=== PATIENT | female | born 1945 | race Caucasian/White ===

== ENCOUNTER 2020-01-01 18:28 | Inpatient (IN) ==
[2020-01-01] MEDS ORDERED: SODIUM CHLORIDE 0.9% 1,000 ML IV STA (19:07)
[2020-01-01 19:18] LABS: Basophils % 0.6 % (0.0-0.8); Eosinophils # 0.1 10*3/uL (0.0-0.87); Eosinophils % 1.9 % (0.00-10.9); Hematocrit 37.7 VOL% (35.7-47.0); Hemoglobin 11.7 GM/DL (12.0-16.0); Immature Granulocytes % 0.7 %; Immature Granulocytes Absolute 0.05 #; Lymphocytes # 1.1 10*3/uL (1.4-4.0); Mean Platelet Volume 11.6 FL (9.6-12.0); Monocytes % 9.5 % (1.7-12.7); Neutrophils % 72.3 % (38.7-73.9); Platelet Count 258 T/CUMM (130-400); Red Blood Count 3.81 MC/CUMM (3.8-5.5); Red Cell Distribution Width 15.1 % (9.3-17.3); White Blood Count 7.2 T/CUMM (4-12)
[2020-01-01 19:25] LABS: INR 1.1; PT Patient Result 12.1 SECS (9.8-11.9)
[2020-01-01 19:33] LABS: Alanine Aminotransferase < 6 U/L (13-56); Albumin 2.6 G/DL (3.4-5.0); Alkaline Phosphatase 68 U/L (45-117); Aspartate Amino Transferase 18 U/L (0-37); Blood Urea Nitrogen 13 MG/DL (7-18); Calcium 8.7 MG/DL (8.5-10.1); Estimated Glom Filtration Rate 93 ML/MIN; Glucose 81 MG/DL (74-106); Total Protein 5.7 G/DL (6.4-8.3)
[2020-01-01 20:24] LABS: Apearance,Urine CLOUDY (Clear); Bacteria,Urine Many /HPF (Few); Bilirubin,Urine Negative (Negative); Blood, Urine Small mg/dL (Negative); Glucose,Urine (UA) Negative (Negative); Ketones,Urine 80 mg/dL (Negative); Mucus,Urine Few /LPF (Occasional); Nitrite,Urine Negative (Negative); Protein,Urine >=500 MG/DL; RBC,Urine 85 /HPF (0-4); Squamous Epithelial Cell,Urine Occasional /HPF (0-10); Urine Color Amber (Yellow); Urine Specific Gravity 1.027 (1.001-1.035); Urine Urobilinogen < 2.0 EU/DL (0.2-1.0); WBC,Urine 534 /HPF (0-6)
[2020-01-01] MEDS ORDERED: PIPERACILLIN/TAZOBACTAM 3,375 MG in SODIUM CHLORIDE 0.9% 100 ML IV STA (20:39)
[2020-01-01] MEDS ORDERED: hydrALAZINE 20 MG/1 ML VIAL IV STA ×2 (20:41→22:33)
[2020-01-01] MEDS ORDERED: PROMETHAZINE 25 MG/1 ML VIAL IM PRN (23:10)
[2020-01-01] MEDS ORDERED: GLUCAGON 1 MG VIAL IM PRN (23:10)
[2020-01-01] MEDS ORDERED: ONDANSETRON 4 MG/2 ML VIAL IV PRN (23:10)
[2020-01-01] MEDS ORDERED: NICOTINE 21 MG/24 HR PATCH TRANSDERM PRN (23:10)
[2020-01-01] MEDS ORDERED: DEXTROSE 50% 25 GM/50 ML VIAL IV PRN (23:10)
[2020-01-01] MEDS ORDERED: diphenhydrAMINE CAP 25 MG CAPSULE PO PRN (23:10)
[2020-01-01] MEDS ORDERED: guaiFENesin/DM ER 600-30 MG TABLET PO PRN (23:10)
[2020-01-02] MEDS ORDERED: LORazepam 2 MG/1 ML VIAL ONE (00:17)
[2020-01-02] MEDS ORDERED: LORazepam 2 MG/1 ML VIAL IV ONE (00:20)
[2020-01-02] MEDS: MEROPENEM 500 MG in SODIUM CHLORIDE 0.9% 100 ML IV SCH ×4 (02:59→21:07)
[2020-01-02] MEDS: hydrALAZINE 20 MG/1 ML VIAL IV PRN ×2 (03:36→21:04)
[2020-01-02 04:27] LABS: Basophils # 0.1 10*3/uL (0.0-0.2); Basophils % 0.5 % (0.0-0.8); Eosinophils # 0.1 10*3/uL (0.0-0.87); Eosinophils % 0.7 % (0.00-10.9); Hematocrit 40.6 VOL% (35.7-47.0); Hemoglobin 12.6 GM/DL (12.0-16.0); Immature Granulocytes % 0.4 %; Immature Granulocytes Absolute 0.04 #; Lymphocytes # 0.9 10*3/uL (1.4-4.0); Lymphocytes % 8.9 % (21.3-54.2); Mean Corpuscular Volume 100.2 FL (87-102); Mean Platelet Volume 11.7 FL (9.6-12.0); Monocytes % 9.3 % (1.7-12.7); Neutrophils % 80.2 % (38.7-73.9); Platelet Count 221 T/CUMM (130-400); Red Blood Count 4.05 MC/CUMM (3.8-5.5); Red Cell Distribution Width 15.3 % (9.3-17.3)
[2020-01-02 05:08] LABS: Calcium 8.9 MG/DL (8.5-10.1); Osmolality,Calculated 282.1 MOS/KG (273-304)
[2020-01-02] MEDS ORDERED: MAGNESIUM SULF RIDER 4 GM in PREMIX 1 EACH IV PRN (05:58)
[2020-01-02] MEDS ORDERED: MAGNESIUM SULF RIDER 2 GM in PREMIX 1 EACH IV PRN (05:58)
[2020-01-02] MEDS ORDERED: MAGNESIUM SULF RIDER 0 ML IV ONE (06:00)
[2020-01-02] MEDS ORDERED: MAGNESIUM SULF RIDER 4 GM in PREMIX 1 EACH IV ONE (09:30)
[2020-01-02] MEDS: FUROSEMIDE 40 MG/4 ML VIAL IV SCH ×2 (10:24→16:36)
[2020-01-02] MEDS: PANTOPRAZOLE 40 MG TABLET PO SCH (10:24)
[2020-01-02] MEDS: DOCUSATE SODIUM 100 MG CAPSULE PO SCH ×2 (10:24→20:49)
[2020-01-02] MEDS: ENOXAPARIN 40 MG/0.4 ML SYRINGE SUBCUT SCH (10:25)
[2020-01-02] MEDS ORDERED: METOPROLOL TARTRATE 5 MG/5 ML VIAL IV ONE (10:42)
[2020-01-02] MEDS ORDERED: DIGOXIN 0.5 MG/2 ML AMP IV ONE (10:43)
[2020-01-02] MEDS ORDERED: GENTAMICIN INJ 400 MG in SODIUM CHLORIDE 0.9% 100 ML IV SCH (11:00)
[2020-01-02] MEDS ORDERED: AMIODARONE INJ 150 MG in DEXTROSE 5% 100 ML IV ONE (11:03)
[2020-01-02] MEDS ORDERED: MAGNESIUM SULF RIDER 2 GM in PREMIX 1 EACH IV ONE (11:07)
[2020-01-02] MEDS ORDERED: DIGOXIN 0.5 MG/2 ML AMP IV SCH (11:30)
[2020-01-02] MEDS: LORazepam 2 MG/1 ML VIAL IV PRN ×2 (12:27→17:01)
[2020-01-02] MEDS: dilTIAZem Drip 125 MG/125 ML PREMIX IV SCH (13:40)
[2020-01-02] MEDS: POTASSIUM CHLORIDE 20 MEQ TABLET PO SCH (14:15)
[2020-01-02] MEDS: POTASSIUM CHLORIDE RIDER 10 MEQ in PREMIX 1 EACH IV SCH ×8 (14:33→23:55)
[2020-01-02] MEDS: METOPROLOL TARTRATE 5 MG/5 ML VIAL IV SCH (23:56)
[2020-01-03] MEDS: dilTIAZem Drip 125 MG/125 ML PREMIX IV SCH ×2 (00:07→16:18)
[2020-01-03] MEDS: MEROPENEM 500 MG in SODIUM CHLORIDE 0.9% 100 ML IV SCH ×4 (02:25→20:40)
[2020-01-03 04:53] LABS: Basophils # 0.1 10*3/uL (0.0-0.2); Basophils % 0.5 % (0.0-0.8); Eosinophils # 0.1 10*3/uL (0.0-0.87); Hematocrit 34.1 VOL% (35.7-47.0); Hemoglobin 10.9 GM/DL (12.0-16.0); Immature Granulocytes % 0.5 %; Immature Granulocytes Absolute 0.05 #; Lymphocytes # 0.7 10*3/uL (1.4-4.0); Lymphocytes % 7.7 % (21.3-54.2); Mean Corpuscular Volume 96.6 FL (87-102); Mean Platelet Volume 12.1 FL (9.6-12.0); Monocytes % 11.3 % (1.7-12.7); Platelet Count 238 T/CUMM (130-400); Red Blood Count 3.53 MC/CUMM (3.8-5.5); Red Cell Distribution Width 15.7 % (9.3-17.3); White Blood Count 9.2 T/CUMM (4-12)
[2020-01-03 05:31] LABS: Calcium 8.6 MG/DL (8.5-10.1); Osmolality,Calculated 281.3 MOS/KG (273-304)
[2020-01-03] MEDS: hydrALAZINE 20 MG/1 ML VIAL IV PRN ×3 (05:58→23:10)
[2020-01-03] MEDS: METOPROLOL TARTRATE 5 MG/5 ML VIAL IV SCH ×4 (06:02→23:35)
[2020-01-03] MEDS: ENOXAPARIN 40 MG/0.4 ML SYRINGE SUBCUT SCH (08:37)
[2020-01-03] MEDS ORDERED: FUROSEMIDE 20 MG/2 ML VIAL ONE (10:03)
[2020-01-03] MEDS: FUROSEMIDE 40 MG/4 ML VIAL IV SCH ×2 (10:05→15:36)
[2020-01-03] MEDS: DOCUSATE SODIUM 100 MG CAPSULE PO SCH (10:10)
[2020-01-03] MEDS: AMPICILLIN INJ 1,000 MG in SODIUM CHLORIDE 0.9% 100 ML IV SCH ×3 (10:10→20:40)
[2020-01-03] MEDS: PANTOPRAZOLE 40 MG TABLET PO SCH (10:10)
[2020-01-03] MEDS: PANTOPRAZOLE 40 MG VIAL IV SCH (13:35)
[2020-01-03] MEDS: LORazepam 2 MG/1 ML VIAL IV PRN ×2 (20:40→22:32)
[2020-01-04] MEDS: MEROPENEM 500 MG in SODIUM CHLORIDE 0.9% 100 ML IV SCH ×3 (02:40→14:00)
[2020-01-04] MEDS: AMPICILLIN INJ 1,000 MG in SODIUM CHLORIDE 0.9% 100 ML IV SCH ×4 (02:43→20:11)
[2020-01-04 04:28] LABS: Basophils # 0.1 10*3/uL (0.0-0.2); Basophils % 0.6 % (0.0-0.8); Eosinophils # 0.1 10*3/uL (0.0-0.87); Eosinophils % 1.8 % (0.00-10.9); Hematocrit 34.1 VOL% (35.7-47.0); Hemoglobin 10.7 GM/DL (12.0-16.0); Immature Granulocytes % 0.6 %; Immature Granulocytes Absolute 0.05 #; Lymphocytes % 12.5 % (21.3-54.2); Mean Corpuscular HGB Conc 31.4 GM/DL (32-36); Mean Corpuscular Volume 99.1 FL (87-102); Mean Platelet Volume 11.8 FL (9.6-12.0); Monocytes % 12.5 % (1.7-12.7); Platelet Count 200 T/CUMM (130-400); Red Blood Count 3.44 MC/CUMM (3.8-5.5); Red Cell Distribution Width 15.5 % (9.3-17.3); White Blood Count 7.8 T/CUMM (4-12)
[2020-01-04] MEDS: ALBUTEROL 2.5 MG/3 ML NEB RESP TX PRN (04:42)
[2020-01-04 04:46] LABS: Hypochromasia 1+; Platelet Estimate Adequate
[2020-01-04 04:52] LABS: Calcium 8.6 MG/DL (8.5-10.1); Osmolality,Calculated 287.8 MOS/KG (273-304)
[2020-01-04] MEDS: METOPROLOL TARTRATE 5 MG/5 ML VIAL IV SCH (06:00)
[2020-01-04] MEDS ORDERED: DEXTROSE 50% 25 GM/50 ML VIAL IV PRN (08:33)
[2020-01-04] MEDS: ENOXAPARIN 40 MG/0.4 ML SYRINGE SUBCUT SCH (08:41)
[2020-01-04] MEDS: DILTIAZEM 60 MG TABLET PO SCH ×4 (08:41→20:11)
[2020-01-04] MEDS: PANTOPRAZOLE 40 MG VIAL IV SCH (08:41)
[2020-01-04] MEDS: METOPROLOL TARTRATE 25 MG TABLET PO SCH ×2 (08:42→20:11)
[2020-01-04] MEDS: ACETAMINOPHEN 325 MG TABLET PO PRN (15:38)
[2020-01-04] MEDS: FLUCONAZOLE 40 MG/ML 35 ML/BOTTLE PER TUBE SCH (17:27)
[2020-01-04] MEDS: LORazepam 2 MG/1 ML VIAL IV PRN (19:49)
[2020-01-05] MEDS: hydrALAZINE 20 MG/1 ML VIAL IV PRN (01:22)
[2020-01-05] MEDS: AMPICILLIN INJ 1,000 MG in SODIUM CHLORIDE 0.9% 100 ML IV SCH ×2 (03:34→08:36)
[2020-01-05 03:39] LABS: Basophils # 0.1 10*3/uL (0.0-0.2); Basophils % 0.8 % (0.0-0.8); Eosinophils # 0.3 10*3/uL (0.0-0.87); Eosinophils % 4.7 % (0.00-10.9); Hematocrit 34.8 VOL% (35.7-47.0); Hemoglobin 10.4 GM/DL (12.0-16.0); Immature Granulocytes % 0.5 %; Immature Granulocytes Absolute 0.03 #; Lymphocytes # 1.1 10*3/uL (1.4-4.0); Lymphocytes % 16.7 % (21.3-54.2); Mean Corpuscular HGB Conc 29.9 GM/DL (32-36); Mean Corpuscular Volume 101.2 FL (87-102); Mean Platelet Volume 11.6 FL (9.6-12.0); Monocytes % 14.7 % (1.7-12.7); Neutrophils % 62.6 % (38.7-73.9); Platelet Count 195 T/CUMM (130-400); Red Blood Count 3.44 MC/CUMM (3.8-5.5); Red Cell Distribution Width 15.5 % (9.3-17.3); White Blood Count 6.6 T/CUMM (4-12)
[2020-01-05 04:02] LABS: Calcium 9.1 MG/DL (8.5-10.1); Osmolality,Calculated 290.7 MOS/KG (273-304)
[2020-01-05 04:23] LABS: Hypochromasia 1+; Platelet Estimate Adequate
[2020-01-05] MEDS: ENOXAPARIN 40 MG/0.4 ML SYRINGE SUBCUT SCH (08:35)
[2020-01-05] MEDS: DILTIAZEM 60 MG TABLET PO SCH ×4 (08:36→20:28)
[2020-01-05] MEDS: PANTOPRAZOLE 40 MG VIAL IV SCH (08:36)
[2020-01-05] MEDS: METOPROLOL TARTRATE 25 MG TABLET PO SCH ×2 (08:36→20:28)
[2020-01-05] MEDS: FLUCONAZOLE 40 MG/ML 35 ML/BOTTLE PER TUBE SCH (08:37)
[2020-01-05] MEDS: POTASSIUM CHLORIDE RIDER 10 MEQ in PREMIX 1 EACH IV SCH ×4 (10:35→14:03)
[2020-01-05] MEDS ORDERED: POTASSIUM CHLORIDE 20 MEQ/15 ML UDCUP PER TUBE PRN (14:09)
[2020-01-05] MEDS ORDERED: MAGNESIUM SULF RIDER 2 GM in PREMIX 1 EACH IV ONE (14:09)
[2020-01-05] MEDS: ASPIRIN CHEW 81 MG TABLET PO SCH (15:09)
[2020-01-05] MEDS: FERROUS SULFATE 325 MG TABLET PO SCH (20:28)
[2020-01-05] MEDS: ASCORBIC ACID 500 MG TABLET PO SCH (20:28)
[2020-01-05] MEDS: ATORVASTATIN 10 MG TABLET PO SCH (20:28)
[2020-01-05] MEDS: CITALOPRAM 20 MG TABLET PO SCH (20:28)
[2020-01-05] MEDS: cycloSPORINE OPH EMUL 1 VIAL BOTH EYES SCH (22:51)
[2020-01-06 04:09] LABS: Basophils % 0.6 % (0.0-0.8); Eosinophils # 0.3 10*3/uL (0.0-0.87); Hematocrit 33.3 VOL% (35.7-47.0); Hemoglobin 9.9 GM/DL (12.0-16.0); Immature Granulocytes % 0.6 %; Immature Granulocytes Absolute 0.04 #; Lymphocytes % 15.3 % (21.3-54.2); Mean Corpuscular HGB Conc 29.7 GM/DL (32-36); Mean Corpuscular Volume 101.2 FL (87-102); Mean Platelet Volume 12.1 FL (9.6-12.0); Monocytes % 12.6 % (1.7-12.7); Neutrophils % 65.9 % (38.7-73.9); Platelet Count 176 T/CUMM (130-400); Red Blood Count 3.29 MC/CUMM (3.8-5.5); Red Cell Distribution Width 14.9 % (9.3-17.3); White Blood Count 6.7 T/CUMM (4-12)
[2020-01-06 04:38] LABS: Calcium 9.2 MG/DL (8.5-10.1)
[2020-01-06] MEDS: hydrALAZINE 20 MG/1 ML VIAL IV PRN (06:07)
[2020-01-06] MEDS: FERROUS SULFATE 325 MG TABLET PO SCH ×2 (08:17→20:19)
[2020-01-06] MEDS: ASPIRIN CHEW 81 MG TABLET PO SCH (08:17)
[2020-01-06] MEDS: CITALOPRAM 20 MG TABLET PO SCH ×2 (08:17→20:19)
[2020-01-06] MEDS: ASCORBIC ACID 500 MG TABLET PO SCH ×2 (08:17→20:19)
[2020-01-06] MEDS: FOLIC ACID 1 MG TABLET PO SCH (08:17)
[2020-01-06] MEDS: DILTIAZEM 60 MG TABLET PO SCH ×4 (08:18→20:18)
[2020-01-06] MEDS: METOPROLOL TARTRATE 25 MG TABLET PO SCH ×2 (08:18→20:19)
[2020-01-06] MEDS: ENOXAPARIN 40 MG/0.4 ML SYRINGE SUBCUT SCH (08:18)
[2020-01-06] MEDS: PANTOPRAZOLE 40 MG VIAL IV SCH (08:18)
[2020-01-06] MEDS: FLUCONAZOLE 40 MG/ML 35 ML/BOTTLE PER TUBE SCH (08:19)
[2020-01-06] MEDS: DOCUSATE SODIUM 100 MG CAPSULE PO SCH (08:20)
[2020-01-06] MEDS: cycloSPORINE OPH EMUL 1 VIAL BOTH EYES SCH ×2 (08:22→20:19)
[2020-01-06] MEDS: ALBUTEROL 2.5 MG/3 ML NEB RESP TX PRN (09:00)
[2020-01-06] MEDS ORDERED: ASPIRIN EC 81 MG TABLET PO SCH (09:00)
[2020-01-06] MEDS: CRAN VITC MANNOSE FOS BROMELN PO SCH (09:37)
[2020-01-06] MEDS: CEFTAROLINE 600 MG in SODIUM CHLORIDE 0.9% 100 ML IV SCH ×2 (09:40→22:00)
[2020-01-06] MEDS: ALBUTEROL/IPRATROPIUM 3 ML NEB RESP TX SCH ×2 (13:15→19:36)
[2020-01-06] MEDS: ACETAMINOPHEN 325 MG TABLET PO PRN (17:48)
[2020-01-06] MEDS: ATORVASTATIN 10 MG TABLET PO SCH (20:19)
[2020-01-07] MEDS: ALBUTEROL/IPRATROPIUM 3 ML NEB RESP TX SCH ×4 (00:24→19:40)
[2020-01-07] MEDS: ENOXAPARIN 40 MG/0.4 ML SYRINGE SUBCUT SCH (09:52)
[2020-01-07] MEDS: CITALOPRAM 20 MG TABLET PO SCH ×3 (09:52→21:34)
[2020-01-07] MEDS: PANTOPRAZOLE 40 MG VIAL IV SCH (09:52)
[2020-01-07] MEDS: ASCORBIC ACID 500 MG TABLET PO SCH ×3 (09:53→21:34)
[2020-01-07] MEDS: DOCUSATE SODIUM 100 MG CAPSULE PO SCH (09:53)
[2020-01-07] MEDS: ASPIRIN CHEW 81 MG TABLET PO SCH (09:53)
[2020-01-07] MEDS: DILTIAZEM 60 MG TABLET PO SCH ×5 (09:53→21:33)
[2020-01-07] MEDS: FOLIC ACID 1 MG TABLET PO SCH (09:53)
[2020-01-07] MEDS: METOPROLOL TARTRATE 25 MG TABLET PO SCH ×3 (09:53→21:34)
[2020-01-07] MEDS: cycloSPORINE OPH EMUL 1 VIAL BOTH EYES SCH ×2 (09:54→21:30)
[2020-01-07] MEDS: CRAN VITC MANNOSE FOS BROMELN PO SCH (09:54)
[2020-01-07] MEDS: FERROUS SULFATE 325 MG TABLET PO SCH ×3 (09:54→21:34)
[2020-01-07] MEDS: FLUCONAZOLE 40 MG/ML 35 ML/BOTTLE PER TUBE SCH (09:54)
[2020-01-07] MEDS: CEFTAROLINE 600 MG in SODIUM CHLORIDE 0.9% 100 ML IV SCH ×2 (10:51→21:30)
[2020-01-07] MEDS: MORPHINE 4 MG/1 ML VIAL IV PRN (12:26)
[2020-01-07] MEDS: hydrALAZINE 20 MG/1 ML VIAL IV PRN (12:26)
[2020-01-07] MEDS: LORazepam 2 MG/1 ML VIAL IV PRN (16:28)
[2020-01-07] MEDS: ATORVASTATIN 10 MG TABLET PO SCH ×2 (20:22→21:34)
[2020-01-08] MEDS: ALBUTEROL/IPRATROPIUM 3 ML NEB RESP TX SCH ×4 (01:47→19:28)
[2020-01-08 06:15] LABS: Basophils # 0.1 10*3/uL (0.0-0.2); Basophils % 0.7 % (0.0-0.8); Eosinophils # 0.3 10*3/uL (0.0-0.87); Eosinophils % 3.9 % (0.00-10.9); Hematocrit 31.6 VOL% (35.7-47.0); Hemoglobin 9.8 GM/DL (12.0-16.0); Immature Granulocytes Absolute 0.07 #; Lymphocytes # 1.4 10*3/uL (1.4-4.0); Lymphocytes % 18.9 % (21.3-54.2); Mean Corpuscular Volume 96.9 FL (87-102); Mean Platelet Volume 12.9 FL (9.6-12.0); Monocytes % 14.5 % (1.7-12.7); Platelet Count 195 T/CUMM (130-400); Red Blood Count 3.26 MC/CUMM (3.8-5.5); Red Cell Distribution Width 14.9 % (9.3-17.3); White Blood Count 7.4 T/CUMM (4-12)
[2020-01-08 06:48] LABS: Calcium 9.3 MG/DL (8.5-10.1); Osmolality,Calculated 283.3 MOS/KG (273-304)
[2020-01-08] MEDS: CEFTAROLINE 600 MG in SODIUM CHLORIDE 0.9% 100 ML IV SCH ×2 (09:41→20:58)
[2020-01-08] MEDS: FLUCONAZOLE 40 MG/ML 35 ML/BOTTLE PER TUBE SCH (09:49)
[2020-01-08] MEDS: cycloSPORINE OPH EMUL 1 VIAL BOTH EYES SCH ×2 (09:49→21:14)
[2020-01-08] MEDS: ENOXAPARIN 40 MG/0.4 ML SYRINGE SUBCUT SCH (09:49)
[2020-01-08] MEDS: PANTOPRAZOLE 40 MG VIAL IV SCH (09:49)
[2020-01-08] MEDS: DILTIAZEM 60 MG TABLET PO SCH ×4 (09:50→21:11)
[2020-01-08] MEDS: ASCORBIC ACID 500 MG TABLET PO SCH ×2 (09:50→21:11)
[2020-01-08] MEDS: METOPROLOL TARTRATE 25 MG TABLET PO SCH ×2 (09:50→21:11)
[2020-01-08] MEDS: FERROUS SULFATE 325 MG TABLET PO SCH ×2 (09:50→21:14)
[2020-01-08] MEDS: CITALOPRAM 20 MG TABLET PO SCH ×2 (09:50→21:14)
[2020-01-08] MEDS: ASPIRIN CHEW 81 MG TABLET PO SCH (09:50)
[2020-01-08] MEDS: FOLIC ACID 1 MG TABLET PO SCH (09:50)
[2020-01-08] MEDS: DOCUSATE SODIUM 100 MG CAPSULE PO SCH (09:50)
[2020-01-08] MEDS: CRAN VITC MANNOSE FOS BROMELN PO SCH (09:50)
[2020-01-08] MEDS: MORPHINE 4 MG/1 ML VIAL IV PRN (12:33)
[2020-01-08] MEDS: hydrALAZINE 10 MG TABLET PO SCH ×2 (12:37→21:11)
[2020-01-08] MEDS: LORazepam 2 MG/1 ML VIAL IV PRN (13:29)
[2020-01-08] MEDS: ATORVASTATIN 10 MG TABLET PO SCH (21:14)
[2020-01-09] MEDS: ALBUTEROL/IPRATROPIUM 3 ML NEB RESP TX SCH ×4 (00:10→19:12)
[2020-01-09 06:45] LABS: Basophils # 0.1 10*3/uL (0.0-0.2); Basophils % 0.8 % (0.0-0.8); Eosinophils # 0.4 10*3/uL (0.0-0.87); Eosinophils % 5.9 % (0.00-10.9); Hematocrit 28.2 VOL% (35.7-47.0); Hemoglobin 8.8 GM/DL (12.0-16.0); Immature Granulocytes % 0.9 %; Immature Granulocytes Absolute 0.06 #; Lymphocytes # 1.2 10*3/uL (1.4-4.0); Lymphocytes % 18.2 % (21.3-54.2); Mean Corpuscular HGB Conc 31.2 GM/DL (32-36); Mean Corpuscular Volume 98.3 FL (87-102); Mean Platelet Volume 13.6 FL (9.6-12.0); Monocytes % 12.2 % (1.7-12.7); Platelet Count 166 T/CUMM (130-400); Red Blood Count 2.87 MC/CUMM (3.8-5.5); Red Cell Distribution Width 14.8 % (9.3-17.3); White Blood Count 6.7 T/CUMM (4-12)
[2020-01-09 07:01] LABS: Calcium 8.7 MG/DL (8.5-10.1); Osmolality,Calculated 280.5 MOS/KG (273-304)
[2020-01-09 07:13] LABS: Hypochromasia 2+; Microcytosis Slight; Ovalocytes Slight; Platelet Estimate Adequate
[2020-01-09] MEDS: ASCORBIC ACID 500 MG TABLET PO SCH ×2 (09:31→20:31)
[2020-01-09] MEDS: FERROUS SULFATE 325 MG TABLET PO SCH ×2 (09:31→20:31)
[2020-01-09] MEDS: PANTOPRAZOLE 40 MG VIAL IV SCH (09:31)
[2020-01-09] MEDS: FOLIC ACID 1 MG TABLET PO SCH (09:31)
[2020-01-09] MEDS: ASPIRIN CHEW 81 MG TABLET PO SCH (09:31)
[2020-01-09] MEDS: hydrALAZINE 10 MG TABLET PO SCH ×2 (09:31→20:31)
[2020-01-09] MEDS: CRAN VITC MANNOSE FOS BROMELN PO SCH (09:32)
[2020-01-09] MEDS: DOCUSATE SODIUM 100 MG CAPSULE PO SCH (09:32)
[2020-01-09] MEDS: cycloSPORINE OPH EMUL 1 VIAL BOTH EYES SCH ×2 (09:32→20:32)
[2020-01-09] MEDS: DILTIAZEM 60 MG TABLET PO SCH ×4 (09:32→20:31)
[2020-01-09] MEDS: METOPROLOL TARTRATE 25 MG TABLET PO SCH ×2 (09:32→20:30)
[2020-01-09] MEDS: CITALOPRAM 20 MG TABLET PO SCH ×2 (09:32→20:31)
[2020-01-09] MEDS: ENOXAPARIN 40 MG/0.4 ML SYRINGE SUBCUT SCH (09:51)
[2020-01-09] MEDS: CEFTAROLINE 600 MG in SODIUM CHLORIDE 0.9% 100 ML IV SCH ×2 (09:55→21:03)
[2020-01-09] MEDS: MORPHINE 4 MG/1 ML VIAL IV PRN (17:17)
[2020-01-09] MEDS: ATORVASTATIN 10 MG TABLET PO SCH (20:31)
[2020-01-10] MEDS: ALBUTEROL/IPRATROPIUM 3 ML NEB RESP TX SCH ×4 (00:26→19:08)
[2020-01-10 04:23] LABS: Basophils # 0.1 10*3/uL (0.0-0.2); Basophils % 0.7 % (0.0-0.8); Eosinophils # 0.4 10*3/uL (0.0-0.87); Hematocrit 27.7 VOL% (35.7-47.0); Hemoglobin 8.7 GM/DL (12.0-16.0); Immature Granulocytes % 0.8 %; Immature Granulocytes Absolute 0.06 #; Lymphocytes # 1.2 10*3/uL (1.4-4.0); Lymphocytes % 16.3 % (21.3-54.2); Mean Corpuscular HGB Conc 31.4 GM/DL (32-36); Mean Corpuscular Volume 98.2 FL (87-102); Monocytes % 14.6 % (1.7-12.7); Neutrophils % 61.6 % (38.7-73.9); Platelet Count 175 T/CUMM (130-400); Red Blood Count 2.82 MC/CUMM (3.8-5.5); Red Cell Distribution Width 14.5 % (9.3-17.3); White Blood Count 7.3 T/CUMM (4-12)
[2020-01-10 04:45] LABS: Calcium 8.8 MG/DL (8.5-10.1); Osmolality,Calculated 275.8 MOS/KG (273-304)
[2020-01-10 04:55] LABS: Hypochromasia 1+; Ovalocytes Slight; Platelet Estimate Adequate
[2020-01-10 04:56] LABS: Microcytosis Slight
[2020-01-10 08:36] LABS: ABG Base Excess 9.4 MMOL/L (-2.5-2.5); ABG HCO3 33.1 MMOL/L (20-26); ABG Oxygen Saturation 92.7 % (95-100); ABG PH 7.431 (7.35-7.45); ABG PO2 68.2 MM HG (80-95); ABG TCO2 32.4 MMOL/L (23-27)
[2020-01-10] MEDS: DILTIAZEM 60 MG TABLET PO SCH ×4 (09:58→20:48)
[2020-01-10] MEDS: CITALOPRAM 20 MG TABLET PO SCH (09:58)
[2020-01-10] MEDS: DOCUSATE SODIUM 100 MG CAPSULE PO SCH (09:58)
[2020-01-10] MEDS: FOLIC ACID 1 MG TABLET PO SCH (09:58)
[2020-01-10] MEDS: ASPIRIN CHEW 81 MG TABLET PO SCH (09:59)
[2020-01-10] MEDS: METOPROLOL TARTRATE 25 MG TABLET PO SCH ×2 (09:59→20:48)
[2020-01-10] MEDS: FERROUS SULFATE 325 MG TABLET PO SCH ×2 (09:59→20:48)
[2020-01-10] MEDS: ENOXAPARIN 40 MG/0.4 ML SYRINGE SUBCUT SCH (09:59)
[2020-01-10] MEDS: ASCORBIC ACID 500 MG TABLET PO SCH ×2 (09:59→20:48)
[2020-01-10] MEDS: CRAN VITC MANNOSE FOS BROMELN PO SCH (09:59)
[2020-01-10] MEDS: hydrALAZINE 10 MG TABLET PO SCH ×2 (10:11→20:48)
[2020-01-10] MEDS: cycloSPORINE OPH EMUL 1 VIAL BOTH EYES SCH ×2 (10:11→20:47)
[2020-01-10] MEDS: PANTOPRAZOLE 40 MG VIAL IV SCH (10:12)
[2020-01-10] MEDS: CEFTAROLINE 600 MG in SODIUM CHLORIDE 0.9% 100 ML IV SCH ×2 (10:19→21:15)
[2020-01-10] MEDS: ATORVASTATIN 10 MG TABLET PO SCH (20:48)
[2020-01-11] MEDS: ALBUTEROL/IPRATROPIUM 3 ML NEB RESP TX SCH ×3 (01:07→14:05)
[2020-01-11] MEDS ORDERED: PANTOPRAZOLE 40 MG TABLET PO SCH (09:00)
[2020-01-11] MEDS ORDERED: levETIRAcetam 500 MG TABLET PO SCH (09:00)
[2020-01-11] MEDS: ENOXAPARIN 40 MG/0.4 ML SYRINGE SUBCUT SCH (09:36)
[2020-01-11] MEDS ORDERED: DILTIAZEM CD 240 MG CAPSULE PO ONE (10:33)
[2020-01-11] MEDS: METOPROLOL TARTRATE 25 MG TABLET PO SCH (11:01)
[2020-01-11] MEDS: CITALOPRAM 20 MG TABLET PO SCH (11:02)
[2020-01-11] MEDS: ASPIRIN CHEW 81 MG TABLET PO SCH (11:02)
[2020-01-11] MEDS: FOLIC ACID 1 MG TABLET PO SCH (11:02)
[2020-01-11] MEDS: FERROUS SULFATE 325 MG TABLET PO SCH (11:02)
[2020-01-11] MEDS: ASCORBIC ACID 500 MG TABLET PO SCH (11:02)
[2020-01-11] MEDS: DOCUSATE SODIUM 100 MG CAPSULE PO SCH (11:02)
[2020-01-11] MEDS: CRAN VITC MANNOSE FOS BROMELN PO SCH (11:03)
[2020-01-11] MEDS: cycloSPORINE OPH EMUL 1 VIAL BOTH EYES SCH (11:03)
[2020-01-11] MEDS: hydrALAZINE 10 MG TABLET PO SCH (11:12)
[2020-01-11] MEDS: DILTIAZEM 60 MG TABLET PO SCH (11:15)
[2020-01-11 11:51] VITALS: BP 144/92
== END 2020-01-11 14:53 | DRG 100 ==
LOC: EDUNIT# → EDBD → N.ED 18:28 → SUATTDRO 23:10 → N.EDINP 23:10 → N.TELES 23:45 → N.ICU 01-02 01:57 → N.4E 01-06 15:18
PROVIDERS: ADMIT Internal Medicine; ATTEND Internal Medicine